=== PATIENT | male | born 2000 | race Caucasian/White ===

== ENCOUNTER 2020-10-05 14:00 | Emergency (ER) | payer OTHER ==
[~2020-10-05] VITALS: Ht 193 cm; Wt 127.0 kg
[~2020-10-05 14:00] MED LIST: CLEOCIN HCL150 MG PO; IBUPROFEN 800800 M1 PO
[2020-10-05] MEDS ORDERED: ABILIFY 2 MG2 M1 PO (14:10)
[2020-10-05 15:10] LABS: ABSOLUTE EOSINOPHILS 0.1 thou/uL (0.0-0.7); ABSOLUTE LYMPHOCYTES 2.6 thou/uL (0.8-5.3); ABSOLUTE MONOCYTES 0.6 thou/uL (0.0-1.2); ABSOLUTE NEUTROPHILS 5.1 thou/uL (1.6-8.1); BASOPHILS 0.4 %; EOSINOPHILS 0.9 %; HEMATOCRIT 44.6 % (42.0-52.0); HEMOGLOBIN 15.4 gm/dL (14.0-18.0); LYMPHOCYTES 31.4 %; MCH 29.5 pg (26.0-34.0); MCHC 34.6 g/dL (28.0-37.0); MCV 85.3 fL (80.0-100.0); MONOCYTES 6.6 %; MPV 7.1 fl. (7.2-11.1); NUCLEATED RBCS 0 /100WBC; PLATELET COUNT* 370 thou/uL (150-400); POLYS 60.7 %; RBC 5.23 mil/uL (4.50-6.00); RDW-CV 13.1 % (10.5-14.5); WBC 8.4 thou/uL (4.0-11.0)
[2020-10-05 15:15] LABS: CALCIUM 8.7 mg/dL (8.5-10.1); CREATININE 1.1 mg/dL (0.6-1.3); POTASSIUM 3.5 mmol/L (3.5-5.1)
[2020-10-05 15:19] LABS: ALBUMIN 4.4 g/dL (3.4-5.0); TOTAL BILIRUBIN 0.4 mg/dL (<0.1-1.0); TOTAL PROTEIN 7.9 g/dL (6.4-8.2)
[2020-10-05 15:22] LABS: APTT 27.2 Seconds (25.0-31.3); PROTIME 10.7 Seconds (9.20-11.50)
[2020-10-05] MEDS ORDERED: VENTOLIN HFA 1818 GM INH (15:57)
[2020-10-05] MEDS ORDERED: HYDROXYZINE HCL25 M2 PO (15:57)
[2020-10-05] MEDS ORDERED: PREDNISONE 20 M20 MG PO (15:59)
[2020-10-05 16:13] VITALS: BP 139/64
--- NOTE | 2020-10-06 16:24 | EKG ---
[place] [address] ELECTROCARDIOGRAM REPORT Name: JOHANN WOODY Room: [facility]#: [id number] Admission: 10/05/20 Attend Phys: Discharge: 10/05/20 Date of : [birth year] Date of Service: 10/05/20 1413 Report #: [id number] THIS REPORT FOR: //name// [facility] ED Test Date: 2020-10-05 Test Time: 14:13:48 Pat Name: JOHANN WOODY Department: Room: Gender: Tie Carrier: [facility] : 2000 Requested By: Lyn Deng Order Number: [id number] : Jean Pierre White Measurements Intervals [place] Rate: 71 P: 48 NM: 132 QRS: 63 QRSD: 106 T: 46 QT: 392 QTc: 426 Interpretive Statements Sinus arrhythmia No previous ECG available for comparison Electronically Signed On 10-06-2020 16:24:06 PIN CHASER by Jean Pierre White [email or web address] <ELECTRONICALLY SIGNED> By: Jean Pierre White MD, [facility] 10/06/20 1624 1413 1413 Jean Pierre White MD, FACC /EPI
== END 2020-10-05 16:13 | disposition home or self-care (01) ==
LOC: M.ERS 14:00
PROVIDERS: Nurse Practitioner Family
DX: R06.00 Dyspnea, unspecified (principal); E78.00 Pure hypercholesterolemia, unspecified; Z20.828 Contact with and (suspected) exposure to other viral communicable diseases

== ENCOUNTER 2020-10-08 13:39 | Emergency (ER) | payer OTHER ==
[~2020-10-08] VITALS: Ht 193 cm; Wt 127.0 kg
[~2020-10-08 13:39] MED LIST changes: +ABILIFY 2 MG2 M1 PO; +HYDROXYZINE HCL25 M2 PO; +PREDNISONE 20 M20 MG PO; +VENTOLIN HFA 1818 GM INH
[2020-10-08 14:26] LABS: INFLUENZA A ANTIGEN Negative (Negative); INFLUENZA B ANTIGEN Negative (Negative)
[2020-10-08 14:48] VITALS: BP 133/78
== END 2020-10-08 14:49 | disposition home or self-care (01) ==
LOC: M.ERS 13:39
PROVIDERS: Nurse Practitioner Psychiatric/Mental Health
DX: J02.9 Acute pharyngitis, unspecified (principal); Z20.828 Contact with and (suspected) exposure to other viral communicable diseases; R09.89 Other specified symptoms and signs involving the circulatory and respiratory systems; E78.00 Pure hypercholesterolemia, unspecified; F41.9 Anxiety disorder, unspecified; J45.909 Unspecified asthma, uncomplicated; Z79.899 Other long term (current) drug therapy